=== PATIENT | female | born 1935 | race Caucasian/White ===

== ENCOUNTER 2021-02-02 05:26 | Inpatient (IN) | payer MEDICARE ==
[2021-02-02] MEDS ORDERED: FEROSUL325 MG PO (06:35)
[2021-02-02] MEDS ORDERED: SIMVASTATIN20 MG PO (06:35)
[2021-02-02] MEDS ORDERED: ALENDRONATE SODI5 MG PO (06:35)
[2021-02-02] MEDS ORDERED: AMLODIPINE BESY10 MG PO (06:35)
[2021-02-02] MEDS ORDERED: NEURONTIN400 MG PO (06:35)
[2021-02-02] MEDS ORDERED: SUCRALFATE1 GM PO (06:35)
[2021-02-02] MEDS ORDERED: MULTI-VITAMIN1 EACH PO (06:35)
[2021-02-02] MEDS ORDERED: ASPIRIN81 MG PO (06:35)
[2021-02-02] MEDS ORDERED: PROTONIX20 MG PO (06:35)
[2021-02-02] MEDS ORDERED: VITAMIN D3250 MC1 PO (06:35)
[2021-02-02] MEDS ORDERED: FISH OIL 1,0001 EAC2 PO (06:35)
[2021-02-02] MEDS ORDERED: LASIX40 MG PO (06:35)
[2021-02-02] MEDS ORDERED: LISINOPRIL10 MG PO (06:35)
[2021-02-02] MEDS ORDERED: FOLIC ACID0.4 MG PO (06:35)
[2021-02-02] MEDS ORDERED: MAGNESIUM OXID400 MG PO (06:35)
[2021-02-02] MEDS ORDERED: GLIPIZIDE5 MG PO (06:35)
[2021-02-02] MEDS ORDERED: ACETAMINOPHEN/1 EAC1 PO (06:35)
[2021-02-02 07:30] VITALS: BP 127/64
[2021-02-02] MEDS ORDERED: PANTOPRAZOLE SOD 40 MG TABEC PO SCH (07:30)
[2021-02-02 09:00] VITALS: BP 127/64
[2021-02-02] MEDS ORDERED: DOCUSATE SODIUM 100 MG CAP PO PRN (09:15)
[2021-02-02] MEDS ORDERED: ONDANSETRON HCL INJ 2MG/ML 2ML 2 MG/ML VIAL IV PRN (09:15)
[2021-02-02] MEDS ORDERED: ZOLPIDEM TARTRATE 5 MG TAB PO PRN (09:15)
[2021-02-02] MEDS ORDERED: DEXTROSE 50% SYRINGE 50 ML IV PRN (09:15)
[2021-02-02 09:33] LABS: BASOPHILS % 0.4 % (0.0-1.0); EOSINOPHILS # (AUTO) 0.6 (0.0-0.4); EOSINOPHILS % 7.8 % (0.0-6.0); HEMATOCRIT 28.4 % (34.2-44.1); HEMOGLOBIN 8.6 g/dL (12.0-16.0); LYMPHOCYTES # (AUTO) 1.4 (1.0-3.2); LYMPHOCYTES % 19.9 % (18.0-39.1); MEAN CORPUSCULAR HEMOGLOBIN 29.2 pg (28-32); MEAN CORPUSCULAR HGB CONC 30.3 g/dL (31-35); MEAN CORPUSCULAR VOLUME 96.3 fL (81-99); MONOCYTES # (AUTO) 0.6 (0.2-0.8); MONOCYTES % 8.5 % (4.4-11.3); NEUTROPHILS # (AUTO) 4.3 (2.1-6.9); NEUTROPHILS % 61.6 % (38.7-80.0); PLATELET COUNT 210 x10e3/uL (140-360); RED BLOOD COUNT 2.95 x10e6/uL (3.6-5.1); RED CELL DISTRIBUTION WIDTH 13.1 % (11.7-14.4)
[2021-02-02] MEDS: MULTIVITAMINS/MINERALS TAB PO SCH (09:41)
[2021-02-02] MEDS: ACETAMINOPHEN 325 MG TAB PO PRN ×2 (09:41→16:44)
[2021-02-02 09:54] LABS: MAGNESIUM 2.2 MG/DL (1.3-2.1); PHOSPHORUS 2.6 MG/DL (2.3-4.7)
[2021-02-02 09:55] LABS: ANION GAP 12.8 mmol/L (8-16); CALCIUM 8.1 mg/dL (8.4-10.2); CHOL/HDL RATIO 3.6 (3.0-3.6); CREATININE, SERUM 1.38 mg/dL (0.57-1.11)
[2021-02-02 09:57] LABS: POTASSIUM 5.8 mmol/L (3.5-5.1)
[2021-02-02 11:10] VITALS: BP 134/52
[2021-02-02] MEDS: INSULIN REGULAR, HUMAN 100 UNIT/1 ML SQ SCH ×3 (12:00→20:50)
[2021-02-02] MEDS: SUCRALFATE 1 GM TAB PO SCH ×2 (12:01→16:44)
[2021-02-02] MEDS: SODIUM CHLORIDE 0.9% 1000ML 1,000 ML IV SCH (12:01)
[2021-02-02 16:25] VITALS: BP 143/58
[2021-02-02] MEDS: FERROUS SULFATE 325 MG TAB PO SCH (16:44)
[2021-02-02] MEDS: GABAPENTIN 300 MG CAP PO SCH ×2 (16:44→20:50)
[2021-02-02 17:13] LABS: ANION GAP 12.1 mmol/L (8-16); CALCIUM 8.8 mg/dL (8.4-10.2); CREATININE, SERUM 1.31 mg/dL (0.57-1.11)
[2021-02-02 17:19] LABS: POTASSIUM 6.1 mmol/L (3.5-5.1)
[2021-02-02] MEDS ORDERED: SOD POLYSTYRENE SULFONATE SUSP 15 GM/60 ML BTL PO ONE (17:30)
[2021-02-02] MEDS ORDERED: CALCIUM GLUCONATE 10% INJ 13.95 MEQ in SODIUM CHLORIDE 0.9% 100 ML 100 ML IV ONE (18:00)
[2021-02-02 19:43] VITALS: BP 150/69
[2021-02-02] MEDS: SIMVASTATIN 20 MG TAB PO SCH (20:50)
[2021-02-02 23:29] LABS: % IRON SATURATION 16 % (15-50); IRON 45 ug/dL (50-170); TOTAL IRON BINDING CAPACITY 288 ug/dL (261-478); TRANSFERRIN 206 mg/dL (180-382)
[2021-02-02 23:52] VITALS: BP 150/69
[2021-02-03] VITALS (7 sets, daily range): BP systolic 132–161; BP diastolic 62–70
[2021-02-03] MEDS: SODIUM CHLORIDE 0.9% 1000ML 1,000 ML IV SCH ×2 (02:42→21:23)
[2021-02-03] MEDS ORDERED: SODIUM CHLORIDE 0.9% 50ML 0 ML ONE (02:54)
[2021-02-03] MEDS: Pantoprazole IV 40 MG in SODIUM CHLORIDE 0.9% 50ML 50 ML IV SCH ×5 (03:00→22:44)
[2021-02-03] MEDS: INSULIN REGULAR, HUMAN 100 UNIT/1 ML SQ SCH ×4 (07:30→21:24)
[2021-02-03] MEDS: SUCRALFATE 1 GM TAB PO SCH ×3 (07:30→17:28)
[2021-02-03 07:41] LABS: MAGNESIUM 1.9 MG/DL (1.3-2.1)
[2021-02-03] MEDS: FERROUS SULFATE 325 MG TAB PO SCH ×2 (08:00→17:27)
[2021-02-03 08:02] LABS: BASOPHILS % 0.5 % (0.0-1.0); EOSINOPHILS # (AUTO) 0.5 (0.0-0.4); HEMATOCRIT 29.1 % (34.2-44.1); HEMOGLOBIN 8.8 g/dL (12.0-16.0); LYMPHOCYTES # (AUTO) 1.3 (1.0-3.2); LYMPHOCYTES % 20.7 % (18.0-39.1); MEAN CORPUSCULAR HEMOGLOBIN 29.5 pg (28-32); MEAN CORPUSCULAR HGB CONC 30.2 g/dL (31-35); MEAN CORPUSCULAR VOLUME 97.7 fL (81-99); MONOCYTES # (AUTO) 0.5 (0.2-0.8); MONOCYTES % 8.8 % (4.4-11.3); NEUTROPHILS # (AUTO) 3.7 (2.1-6.9); NEUTROPHILS % 60.2 % (38.7-80.0); PLATELET COUNT 195 x10e3/uL (140-360); RED BLOOD COUNT 2.98 x10e6/uL (3.6-5.1); RED CELL DISTRIBUTION WIDTH 13.2 % (11.7-14.4)
[2021-02-03 08:28] LABS: ANION GAP 10.5 mmol/L (8-16); CALCIUM 8.5 mg/dL (8.4-10.2); CREATININE, SERUM 1.18 mg/dL (0.57-1.11); POTASSIUM 4.5 mmol/L (3.5-5.1)
[2021-02-03] MEDS: AMLODIPINE BESYLATE 10 MG TAB PO SCH (09:00)
[2021-02-03] MEDS: GABAPENTIN 300 MG CAP PO SCH ×3 (09:00→21:23)
[2021-02-03] MEDS: DICYCLOMINE HCL 20 MG TAB PO SCH ×4 (09:00→21:23)
[2021-02-03] MEDS: MULTIVITAMINS/MINERALS TAB PO SCH (09:00)
[2021-02-03] MEDS ORDERED: MULTIVITAMINS/MINERALS TAB PO SCH (09:00)
[2021-02-03] MEDS ORDERED: FERROUS SULFATE 325 MG TAB PO SCH (09:00)
[2021-02-03] MEDS: IRON SUCROSE 100 MG in SODIUM CHLORIDE 0.9% 100 ML 100 ML IV SCH (12:06)
[2021-02-03] MEDS: CYANOCOBALAMIN INJ 1,000 MCG/ML VIAL IM SCH (12:06)
[2021-02-03] MEDS ORDERED: PROPOFOL IV EMULSION 10 MG/ML 20 ML VIAL ONE (13:28)
[2021-02-03] MEDS ORDERED: LIDOCAINE HCL 2% LOCAL INJ 5 ML SDV VIAL INJ ONE (13:28)
[2021-02-03] MEDS ORDERED: CHOLESTYRAMINE 4 GM PACKET PO PRN (15:15)
[2021-02-03] MEDS: ACETAMINOPHEN 325 MG TAB PO PRN ×3 (17:30→21:56)
[2021-02-03] MEDS: SIMVASTATIN 20 MG TAB PO SCH (21:23)
[2021-02-04 00:55] VITALS: BP 112/58
[2021-02-04] MEDS: SODIUM CHLORIDE 0.9% 1000ML 1,000 ML IV SCH (02:13)
[2021-02-04] MEDS: Pantoprazole IV 40 MG in SODIUM CHLORIDE 0.9% 50ML 50 ML IV SCH (04:19)
[2021-02-04 05:29] VITALS: BP 133/68
[2021-02-04] MEDS: INSULIN REGULAR, HUMAN 100 UNIT/1 ML SQ SCH (07:30)
[2021-02-04] MEDS ORDERED: PANTOPRAZOLE SO40 MG PO (08:08)
[2021-02-04] MEDS ORDERED: DICYCLOMINE HCL20 MG PO (08:08)
[2021-02-04 08:57] VITALS: BP 151/63
[2021-02-04 08:58] VITALS: BP 151/63
[2021-02-04] MEDS: SUCRALFATE 1 GM TAB PO SCH (09:29)
[2021-02-04] MEDS: IRON SUCROSE 100 MG in SODIUM CHLORIDE 0.9% 100 ML 100 ML IV SCH (09:29)
[2021-02-04] MEDS: DICYCLOMINE HCL 20 MG TAB PO SCH (09:29)
[2021-02-04] MEDS: FERROUS SULFATE 325 MG TAB PO SCH (09:29)
[2021-02-04] MEDS: CYANOCOBALAMIN INJ 1,000 MCG/ML VIAL IM SCH (09:29)
[2021-02-04] MEDS: MULTIVITAMINS/MINERALS TAB PO SCH (09:30)
[2021-02-04] MEDS: AMLODIPINE BESYLATE 10 MG TAB PO SCH (09:30)
[2021-02-04] MEDS: GABAPENTIN 300 MG CAP PO SCH (09:30)
[2021-02-04 09:31] LABS: HEMATOCRIT 32.4 % (34.2-44.1); HEMOGLOBIN 9.6 g/dL (12.0-16.0)
[2021-02-04] MEDS: ACETAMINOPHEN 325 MG TAB PO PRN (09:44)
[2021-02-07 13:11] LABS: ENDOMYSIAL ANTIBODIES, IGA Negative (Negative)
== END 2021-02-04 11:37 | disposition home or self-care (01) | DRG 381 ==
LOC: MED/SURG3 05:26
PROVIDERS: ADMIT Internal Medicine; ATTEND Internal Medicine
PROC: 0DB98ZX Excision of Duodenum, Via Natural or Artificial Opening Endoscopic, Diagnostic (ICD-10-PCS; 2021-02-03)
PROC: 0DB68ZX Excision of Stomach, Via Natural or Artificial Opening Endoscopic, Diagnostic (ICD-10-PCS; 2021-02-03)
PROC: 0DB78ZX Excision of Stomach, Pylorus, Via Natural or Artificial Opening Endoscopic, Diagnostic (ICD-10-PCS; principal; 2021-02-03 14:30)
DX: K22.11 Ulcer of esophagus with bleeding (principal); D62 Acute posthemorrhagic anemia; D64.9 Anemia, unspecified; K29.71 Gastritis, unspecified, with bleeding; E11.9 Type 2 diabetes mellitus without complications; E78.5 Hyperlipidemia, unspecified; I10 Essential (primary) hypertension; Z90.49 Acquired absence of other specified parts of digestive tract; Z20.822 Contact with and (suspected) exposure to COVID-19; Z88.8 Allergy status to other drugs, medicaments and biological substances; K52.89 Other specified noninfective gastroenteritis and colitis; M54.9 Dorsalgia, unspecified; D50.0 Iron deficiency anemia secondary to blood loss (chronic); K44.9 Diaphragmatic hernia without obstruction or gangrene; Z98.84 Bariatric surgery status
CPT/HCPCS: 36415; 43239; 80048; 80061; 82270; 82607; 82728; 82746; 82784; 82948; 83036; 83516; 83540; 83735; 84100; 84132; 84466; 85014; 85018; 85025; 85045; 86256; 88305; 88312; 99251; J0610; J1756; J2001; J3420; J7030; U0002